=== PATIENT | female | born 1990 ===

== ENCOUNTER 2018-11-28 03:25 | Emergency (ER) | payer OTHER ==
--- NOTE | 2018-11-28 04:18 | ED PDOC ---
HPI: Dental Pain/Injury Time Seen by Provider: 11/28/18 04:14 Chief Complaint (Nursing): Dental Pain Chief Complaint (Provider): dental pain History Per: Patient (28 y/o female here with complaint of right dental swelling/pain after dental filling here for evaluation. States she took first dose of amoxicillin today. ) Past Medical History Reviewed: Historical Data, Nursing Documentation, Vital Signs Vital Signs: Last Vital Signs Temp 98.6 F 11/28/18 03:38 Pulse 76 11/28/18 03:38 Resp 16 11/28/18 03:38 BP 155/106 H 11/28/18 03:38 Pulse Ox 98 11/28/18 03:38 - Family History Family History: States: No Known Family Hx - Home Medications Home Medications: Ambulatory Orders Medication Instructions Recorded Clindamycin [Cleocin] 300 mg PO Q6 #40 cap 11/28/18 - Allergies Allergies/Adverse Reactions: Allergies Allergy/AdvReac Type Severity Reaction Status Date / Time No Known Allergies Allergy Verified 11/28/18 03:41 Review of Systems ROS Statement: Except As Marked, All Systems Reviewed And Found Negative Physical Exam - Reviewed Nursing Documentation Reviewed: Yes Vital Signs Reviewed: Yes - Physical Exam Appears: Positive for: Well, Non-toxic, No Acute Distress Head Exam: Positive for: ATRAUMATIC, NORMAL INSPECTION, NORMOCEPHALIC Skin: Positive for: Normal Color, Warm, DRY Eye Exam: Positive for: EOMI, Normal appearance, PERRL ENT: Positive for: Normal ENT Inspection, Other (right upper dental abscess noted.) Neck: Positive for: Normal, Painless ROM Cardiovascular/Chest: Positive for: Regular Rate, Rhythm Respiratory: Positive for: CNT, Normal Breath Sounds Gastrointestinal/Abdominal: Positive for: Normal Exam, Soft Back: Positive for: Normal Inspection Extremity: Positive for: Normal ROM Neurologic/Psych: Positive for: Alert, Oriented - ECG O2 Sat by Pulse Oximetry: 98 Disposition - Clinical Impression Clinical Impression: Dental abscess - Patient ED Disposition Is Patient to be Admitted: No - Disposition Disposition: Routine/Home Disposition Time: Condition: FAIR Additional Instructions: CONTACT [phone] SEDA GOODWIN [employer]GE[employer] Prescriptions: Clindamycin [Cleocin] 300 mg PO Q6 #40 cap Instructions: Tooth Abscess (DC)
[2018-11-28] MEDS ORDERED: Oxycodone/Acetaminophen 5/325 mg Tab PO ONE (04:33)
[2018-11-28] MEDS ORDERED: Oxycodone/Acetaminophen 5/325 mg Tab ONE (04:38)
[2018-11-28 04:41] VITALS: BP 137/80; PULSE 78; RESP 18; TEMP 98.5; O2SAT 99
== END 2018-11-28 04:50 | disposition home or self-care (01) ==
LOC: H.ER 03:25
DX: K04.7 Periapical abscess without sinus (principal); R51 Headache